=== PATIENT | female | born 1960 | race Caucasian/White ===

== ENCOUNTER 2019-01-22 11:53 | Emergency (ER) | payer MEDICAID ==
[~2019-01-22] VITALS: Ht 170.2 cm; Wt 86.4 kg
[2019-01-22] MEDS ORDERED: FURO40I IM (12:09)
[2019-01-22] MEDS ORDERED: MIRT15 PO (12:09)
[2019-01-22] MEDS ORDERED: ATOR10TA84 PO (12:09)
[2019-01-22] MEDS ORDERED: PERCT10 PO (12:09)
[2019-01-22] MEDS ORDERED: CLOP75TA3 PO (12:09)
[2019-01-22] MEDS ORDERED: CARV12 PO (12:09)
[2019-01-22 13:08] VITALS: BP 116/72
== END 2019-01-22 13:46 | disposition home or self-care (01) ==
LOC: EMS 11:54
DX: G89.29 Other chronic pain (principal); E11.9 Type 2 diabetes mellitus without complications; E78.00 Pure hypercholesterolemia, unspecified; I10 Essential (primary) hypertension; F17.200 Nicotine dependence, unspecified, uncomplicated; Z76.0 Encounter for issue of repeat prescription; Z88.0 Allergy status to penicillin; Z88.6 Allergy status to analgesic agent; Z79.899 Other long term (current) drug therapy; Z95.0 Presence of cardiac pacemaker

== ENCOUNTER 2019-01-24 10:58 | Emergency (ER) | payer MEDICARE, MEDICAID ==
[~2019-01-24] VITALS: Ht 167.6 cm; Wt 91.8 kg
[~2019-01-24 10:58] MED LIST: ATOR10TA84 PO; CARV12 PO; CLOP75TA3 PO; FURO40I IM; MIRT15 PO; PERCT10 PO
[2019-01-24 11:04] VITALS: BP 120/57
== END 2019-01-24 11:05 | disposition left against medical advice (07) ==
LOC: EMS 10:59
DX: Z00.00 Encounter for general adult medical examination without abnormal findings (principal); Z53.21 Procedure and treatment not carried out due to patient leaving prior to being seen by health care provider